=== PATIENT | female | born 1970 ===

== ENCOUNTER 2019-05-17 11:35 | Emergency (ER) | payer OTHER ==
[~2019-05-17] VITALS: Ht 160 cm; Wt 63.5 kg
== END 2019-05-17 13:19 | disposition home or self-care (01) ==
LOC: ER 11:35
DX: S92.522A Displaced fracture of middle phalanx of left lesser toe(s), initial encounter for closed fracture (principal); W22.8XXA Striking against or struck by other objects, initial encounter; F17.200 Nicotine dependence, unspecified, uncomplicated
CPT/HCPCS: 73660; 99283-25